=== PATIENT | female | born 1985 | race Caucasian/White ===

== ENCOUNTER 2019-01-05 17:17 | Emergency (ER) | payer MEDICAID ==
[2019-01-05 17:33] VITALS: BP 131/86
--- NOTE | 2019-01-05 18:08 | EDPHY ---
H & P Time Seen by Provider: 01/05/19 17:23 HPI/ROS: CHIEF COMPLAINT: Bilateral ear pain left greater than right. HISTORY OF PRESENT ILLNESS: Patient states that Friday afternoon after going to a concert she developed ear pain. She noticed it on the left ear 1st but now states that both ears hurt. She has tried Tylenol, naproxen, ibuprofen without relief. She denies sinus congestion, sore throat, rhinorrhea, cough or fever. She has had no trauma to her head or ears. She states it was gradual in onset but has been persistent. She is not a swimmer. REVIEW OF SYSTEMS: Negative except per HPI. General Appearance: Alert, no distress. Eyes: Pupils equal and round no icterus. Oropharynx clear. Right ear normal external and internal exam TM with normal light reflex. Left ear with "pimple" and some erythema in the external auditory canal near the TM with some slight dulling of the tympanic membrane. No fluid noted. Mastoids normal. No lymphadenopathy. Cardiac: No murmurs rubs or gallops. Respiratory: No respiratory distress. Lungs clear to auscultation bilaterally Neurological: Awake, alert, no focal deficits. Skin: Warm and dry, no rashes. Musculoskeletal: Neck is supple nontender. Extremities are symmetrical, full range of motion, no edema. Psychiatric: Patient is oriented X 3, there is no agitation. Medical/surgical history: Gallbladder surgery. Social history: Denies tobacco or drugs. Smoking Status: Never smoked Constitutional: Initial Vital Signs Temperature (C) 36.9 C 01/05/19 17:30 Heart Rate 74 01/05/19 17:30 Respiratory Rate 18 01/05/19 17:30 Blood Pressure 131/86 H 01/05/19 17:30 O2 Sat (%) 94 01/05/19 17:30 O2 Delivery Mode Room Air Allergies/Adverse Reactions: No Known Allergies Allergy (Unverified 01/05/19 17:30) Home Medications: Medication Instructions Recorded NK [No Known Home Meds] 01/05/19 Medical Decision Making Differential Diagnosis: Differential diagnosis includes but is not limited to barotrauma, otitis media, otitis externa, upper respiratory infection. After evaluation patient with likely acne as the cause of her inflammatory findings in the left external auditory canal. Not classic otitis externa however will treat with topical antibiotics. Do not think that oral antibiotics are indicated at this time. I did talk to the patient about the importance of recheck if symptoms not significantly improved in the next few days. Recommended she follow up with her primary care physician on Friday. Also discussed return precautions. Ciprodex given to patient in the emergency department. Stable for outpatient follow-up. - Data Points Medications Given: Discontinued Medications Ciprofloxacin/Dexamethasone (Ciprodex) 4 drops LEFTEAR BID ASTRID Stop: 07/04/19 20:59 Last Admin: 01/05/19 18:33 Dose: 4 drops Departure - Departure Disposition: Home, Routine, Self-Care Clinical Impression: Otitis externa Qualifiers: Otitis externa type: unspecified type Chronicity: acute Laterality: left Qualified Code(s): H60.502 - Unspecified acute noninfective otitis externa, left ear Condition: Good Instructions: Otitis Externa (ED) Additional Instructions: Use the ear drops twice a day to the left ear. You can use in the right ear if pain increases on that side as well. Follow up with her primary care physician at the end of the week as discussed for recheck. If you developed fever, drainage from your ear or worsening pain please return to the emergency department for recheck. Referrals: [facility] [Other] - As per Instructions
[2019-01-05] MEDS ORDERED: CIPROFLOXACIN HCL/DEXAMETH 7.5 ML OTIC DROPS LEFTEAR SCH (21:00)
== END 2019-01-05 18:18 | disposition home or self-care (01) ==
LOC: CED 17:17
DX: H60.502 Unspecified acute noninfective otitis externa, left ear (principal)
CPT/HCPCS: 99283-ER